=== PATIENT | male | born 1975 | race Caucasian/White ===

== ENCOUNTER → 2017-07-18 | Outpatient (REF) ==
[~2017-07-18] MED LIST: CLEOCIN HCL300 MG PO; NORCO 325 MG-51 TAB PO
[2017-07-18 11:03] LABS: CHLAMYDIA/TRACH by PCR Male NOT DETECTED; Neisseria Gon by PCR Male NOT DETECTED
== END ==
LOC: ZLAB.WCH 08:43
PROVIDERS: Nurse Practitioner Primary Care
DX: Z01.89 Encounter for other specified special examinations (principal)

== ENCOUNTER 2017-10-08 13:48 | Emergency (ER) | payer SELFPAY ==
[~2017-10-08] VITALS: Ht 182.9 cm; Wt 81.8 kg
[2017-10-08 14:34] LABS: COLLECTION METHOD CLEAN CATCH
[2017-10-08 14:43] LABS: AMORPHOUS CRYSTAL Present /uL; MUCOUS Present /lpf; PH 7 (5-8); SQUAMOUS EPITHELIAL 0-2 /hpf; URINE APPEARANCE Hazy; URINE BACTERIA None Seen /hpf; URINE BILIRUBIN Negative (NEGATIVE); URINE BLOOD Negative (NEGATIVE); URINE COLOR Yellow; URINE GLUCOSE Negative (NEGATIVE); URINE KETONE Negative (NEGATIVE); URINE LEUKOCYTE ESTERASE Negative (NEGATIVE); URINE NITRATE Negative (NEGATIVE); URINE PROTEIN(semi-quant) Negative (NEGATIVE); URINE RBC 0-2 /hpf
[2017-10-08] MEDS ORDERED: NORCO 325 MG-51 TAB PO (16:21)
[2017-10-08] MEDS ORDERED: DOXYCYCLINE 10100 MG PO (16:21)
[2017-10-08 16:36] VITALS: BP 127/76; PULSE 91; TEMP 98
== END 2017-10-08 16:32 | disposition home or self-care (01) ==
LOC: COL.ER 13:48
PROVIDERS: Family Medicine
DX: N45.1 Epididymitis (principal); Z87.891 Personal history of nicotine dependence

== ENCOUNTER 2018-01-10 12:51 | Day surgery (SDC) | payer SELFPAY ==
[~2018-01-10] VITALS: Ht 182.9 cm; Wt 78.1 kg
[2018-01-10] VITALS (8 sets, daily range): BP systolic 132–155; BP diastolic 79–90; PULSE 61–102; TEMP 97.2–98.7
[~2018-01-10 12:51] MED LIST changes: +DOXYCYCLINE 10100 MG PO
[2018-01-10] MEDS ORDERED: NORCO 325 MG-51 TAB PO (13:11)
== END 2018-01-10 17:19 | disposition home or self-care (01) ==
LOC: SDCO 12:51
DX: N45.1 Epididymitis (principal); N50.89 Other specified disorders of the male genital organs; F17.210 Nicotine dependence, cigarettes, uncomplicated
CPT/HCPCS: J0690; J1100; J2270; J2405; J2704; J3010; J7120

== ENCOUNTER 2018-01-26 17:02 | Emergency (ER) | payer SELFPAY ==
[~2018-01-26] VITALS: Ht 182.9 cm; Wt 77.3 kg
[2018-01-26 17:06] VITALS: BP 110/66; PULSE 100; TEMP 98.1
[2018-01-26 17:35] LABS: COLLECTION METHOD CLEAN CATCH
[2018-01-26 17:40] LABS: PH 8 (5-8); SQUAMOUS EPITHELIAL None Seen /hpf; URINE APPEARANCE Clear; URINE BACTERIA None Seen /hpf; URINE BILIRUBIN Negative (NEGATIVE); URINE BLOOD Negative (NEGATIVE); URINE COLOR Yellow; URINE GLUCOSE Negative (NEGATIVE); URINE KETONE Negative (NEGATIVE); URINE LEUKOCYTE ESTERASE Negative (NEGATIVE); URINE NITRATE Negative (NEGATIVE); URINE PROTEIN(semi-quant) Negative (NEGATIVE); URINE RBC 0-2 /hpf; URINE UROBILINOGEN Negative (NEGATIVE)
[2018-01-26 17:56] LABS: BASO # 0.1 (0.0-0.2); BASO % 0.7 % (0.0-2.0); EOS # 0.2 (0.0-0.7); EOS % 2.4 % (0-4.0); GRAN % 48.2 % (42.2-75.2); HEMATOCRIT 40.9 % (42.0-52.0); HEMOGLOBIN 14.6 g/dl (13.5-18.0); LYMPH # 3.7 (1.2-3.4); LYMPH % 44.6 % (20.0-51.0); MEAN CELL VOLUME 89 fl (80.0-100.0); MEAN CORPUSCULAR HEMOGLOBIN 32 pg (27.0-31.0); MEAN CORPUSCULAR HGB CONC 36 g/dl (33.0-37.0); MEAN PLATELET VOLUME 8.9 fl (7.4-10.4); MONO # 0.3 (0.1-0.6); PLATELET COUNT 417 K/mm3 (130-400); REDCELL DISTRIBUTION WIDTH-CV 11.9 % (11.5-14.5)
[2018-01-26] MEDS ORDERED: CIPRO 500MG TA500 MG PO (18:52)
== END 2018-01-26 19:02 | disposition home or self-care (01) ==
LOC: COL.ER 17:02
PROVIDERS: Emergency Medicine
DX: G89.29 Other chronic pain (principal); N50.811 Right testicular pain; F12.90 Cannabis use, unspecified, uncomplicated; F17.210 Nicotine dependence, cigarettes, uncomplicated

== ENCOUNTER 2019-01-26 14:07 | Emergency (ER) | payer SELFPAY ==
[~2019-01-26] VITALS: Ht 182.9 cm; Wt 84.1 kg
[~2019-01-26 14:07] MED LIST changes: +CIPRO 500MG TA500 MG PO
[2019-01-26 14:24] VITALS: TEMP 98.7
[2019-01-26 14:57] LABS: COLLECTION METHOD CLEAN CATCH
[2019-01-26 15:00] LABS: BASO # 0.1 (0.0-0.2); BASO % 0.5 % (0.0-2.0); EOS # 0.1 (0.0-0.7); EOS % 1.1 % (0-4.0); GRAN # 6.6 (1.4-6.5); GRAN % 71.9 % (42.2-75.2); HEMATOCRIT 38.9 % (42.0-52.0); HEMOGLOBIN 13.1 g/dl (13.5-18.0); LYMPH # 1.9 (1.2-3.4); MEAN CELL VOLUME 93 fl (80.0-100.0); MEAN CORPUSCULAR HEMOGLOBIN 31 pg (27.0-31.0); MEAN CORPUSCULAR HGB CONC 34 g/dl (33.0-37.0); MEAN PLATELET VOLUME 8.6 fl (7.4-10.4); MONO # 0.5 (0.1-0.6); MONO % 5.3 % (1.7-9.3); PLATELET COUNT 404 K/mm3 (130-400); REDCELL DISTRIBUTION WIDTH-CV 12.2 % (11.5-14.5)
[2019-01-26 15:07] LABS: AMORPHOUS CRYSTAL Present /uL; MUCOUS Present /lpf; PH 8 (5-8); SQUAMOUS EPITHELIAL None Seen /hpf; URINE APPEARANCE Turbid; URINE BACTERIA Rare /hpf; URINE BILIRUBIN Negative (NEGATIVE); URINE BLOOD Negative (NEGATIVE); URINE COLOR Yellow; URINE GLUCOSE Negative (NEGATIVE); URINE KETONE 2+ (NEGATIVE); URINE LEUKOCYTE ESTERASE Negative (NEGATIVE); URINE NITRATE Negative (NEGATIVE); URINE PROTEIN(semi-quant) Negative (NEGATIVE); URINE RBC 0-2 /hpf; URINE UROBILINOGEN Negative (NEGATIVE)
[2019-01-26 15:13] LABS: ALBUMIN 3.8 gm/dL (3.5-5.0); BILIRUBIN,TOTAL 0.4 mg/dL (0.0-1.0); CALCIUM 9.7 mg/dL (8.4-10.2); CREATININE, serum 0.99 (0.66-1.25); POTASSIUM 3.4 mmol/L (3.4-5.0); TOTAL PROTEIN 7.2 gm/dL (6.4-8.2)
[2019-01-26] MEDS ORDERED: ULTRAM 50MG TAB50 MG PO (17:21)
[2019-01-26 18:56] VITALS: BP 134/81; PULSE 89
== END 2019-01-26 18:56 | disposition home or self-care (01) ==
LOC: COL.ER 14:07
PROVIDERS: Nurse Practitioner
DX: K40.20 Bilateral inguinal hernia, without obstruction or gangrene, not specified as recurrent (principal); F12.90 Cannabis use, unspecified, uncomplicated; F17.210 Nicotine dependence, cigarettes, uncomplicated
CPT/HCPCS: J1170; J1885; J2405; J7030; Q9967

== ENCOUNTER 2019-01-29 22:58 | Emergency (ER) | payer SELFPAY ==
[~2019-01-29 22:58] MED LIST changes: +ULTRAM 50MG TAB50 MG PO
[2019-01-29 23:02] VITALS: BP 129/85; PULSE 68; TEMP 97.5
[2019-01-30 00:32] LABS: COLLECTION METHOD CLEAN CATCH
[2019-01-30 00:38] LABS: MUCOUS Present /lpf; PH 8 (5-8); SQUAMOUS EPITHELIAL None Seen /hpf; URINE APPEARANCE Hazy; URINE BACTERIA Rare /hpf; URINE BILIRUBIN Negative (NEGATIVE); URINE BLOOD Negative (NEGATIVE); URINE COLOR Yellow; URINE GLUCOSE Negative (NEGATIVE); URINE KETONE Trace (NEGATIVE); URINE LEUKOCYTE ESTERASE Negative (NEGATIVE); URINE NITRATE Negative (NEGATIVE); URINE PROTEIN(semi-quant) Negative (NEGATIVE); URINE RBC 0-2 /hpf; URINE UROBILINOGEN Negative (NEGATIVE)
== END 2019-01-30 02:15 | disposition home or self-care (01) ==
LOC: COL.ER 22:58
PROVIDERS: Emergency Medicine
DX: K40.90 Unilateral inguinal hernia, without obstruction or gangrene, not specified as recurrent (principal); F17.210 Nicotine dependence, cigarettes, uncomplicated

== ENCOUNTER 2019-04-01 10:26 | Day surgery (SDC) | payer SELFPAY ==
[~2019-04-01] VITALS: Ht 182.9 cm; Wt 69.0 kg
[2019-04-01 11:19] VITALS: BP 119/83; PULSE 80; TEMP 97.3
[2019-04-01 15:05] VITALS: BP 115/79; PULSE 84; TEMP 98.6
--- NOTE | 2019-04-01 15:05 | NUR ---
Patient [place] [facility] [place] denies nausea, reports abdomen sore. Bandaids x3 clean/dry/intact, scrotal support in place. Patient monitor applied, vitals stable. Patient given orange juice, pudding and scheduled Tylenol.
[2019-04-01 15:15] VITALS: BP 97/76; PULSE 83
[2019-04-01] MEDS ORDERED: ULTRAM 50MG TAB50 MG PO (15:22)
[2019-04-01 15:30] VITALS: BP 118/77; PULSE 88
--- NOTE | 2019-04-01 15:30 | NUR ---
Patient reports that he is feeling good, abdomen just a little sore. Reports soreness tolerable, denies wanting/needing any pain medication. Vitals stable, patient states he wants to go home and rest soon.
[2019-04-01 15:45] VITALS: BP 121/75; PULSE 89
--- NOTE | 2019-04-01 16:00 | NUR ---
Dismissal instructions gone over with patient. Patient verbalizes understanding and all questions answered.
--- NOTE | 2019-04-01 16:15 | NUR ---
Patient dismissed to visitor enterance via wheelchair to private vehicle his sister is driving. Patient leaves thanking staff for servics.
== END 2019-04-01 16:15 | disposition home or self-care (01) ==
LOC: SDCO 10:26
DX: K40.20 Bilateral inguinal hernia, without obstruction or gangrene, not specified as recurrent (principal); D17.6 Benign lipomatous neoplasm of spermatic cord; F17.210 Nicotine dependence, cigarettes, uncomplicated; Z90.79 Acquired absence of other genital organ(s)
CPT/HCPCS: C1781; J0690; J1100; J1885; J2250; J2405; J2704; J3010; J7120

== ENCOUNTER 2020-02-13 13:07 | Emergency (ER) | payer SELFPAY ==
[~2020-02-13] VITALS: Ht 182.9 cm; Wt 84.1 kg
[2020-02-13 13:12] VITALS: TEMP 98.5
[2020-02-13 13:53] LABS: COLLECTION METHOD CLEAN CATCH
[2020-02-13 14:27] LABS: MUCOUS Present /lpf; PH 6 (5-8); SQUAMOUS EPITHELIAL 0-2 /hpf; URINE APPEARANCE Clear; URINE BACTERIA None Seen /hpf; URINE BILIRUBIN Negative (NEGATIVE); URINE BLOOD Negative (NEGATIVE); URINE COLOR Yellow; URINE GLUCOSE Negative (NEGATIVE); URINE KETONE Negative (NEGATIVE); URINE LEUKOCYTE ESTERASE Negative (NEGATIVE); URINE NITRATE Negative (NEGATIVE); URINE PROTEIN(semi-quant) Negative (NEGATIVE); URINE RBC 0-2 /hpf; URINE UROBILINOGEN Negative (NEGATIVE)
[2020-02-13] MEDS ORDERED: LEVAQUIN 5500 MG/TA1 PO (14:58)
[2020-02-13] MEDS ORDERED: NORCO 325 MG-51 TAB PO (14:58)
[2020-02-13 15:01] VITALS: BP 109/95; PULSE 103
== END 2020-02-13 15:10 | disposition home or self-care (01) ==
LOC: COL.ER 13:07
PROVIDERS: Nurse Practitioner
DX: N43.3 Hydrocele, unspecified (principal); F17.210 Nicotine dependence, cigarettes, uncomplicated
CPT/HCPCS: J0696; J1885

== ENCOUNTER 2020-07-26 21:46 | Emergency (ER) | payer SELFPAY ==
[~2020-07-26] VITALS: Ht 182.9 cm; Wt 81.8 kg
[~2020-07-26 21:46] MED LIST changes: +LEVAQUIN 5500 MG/TA1 PO
[2020-07-26 21:57] VITALS: TEMP 98.3
[2020-07-26] MEDS ORDERED: LEVAQUIN 750MG750 M1 PO (22:35)
[2020-07-26 22:45] VITALS: BP 154/97; PULSE 72
== END 2020-07-26 22:47 | disposition home or self-care (01) ==
LOC: COL.ER 21:46
DX: N50.89 Other specified disorders of the male genital organs (principal); Z98.890 Other specified postprocedural states
CPT/HCPCS: J0696